=== PATIENT | female | born 1975 | race Two or more races ===

== ENCOUNTER → 2023-03-19 | Day surgery (SDC) | payer OTHER ==
[~2023-03-19] MED LIST: ACETAMINOPHEN 1000 MG/100 ML 100 ML IV ONE; FENTANYL CITRATE/PF 100MCG/2 ML INJ ONE; HYOSCYAMINE SULFATE 0.5 MG/ML INJ ONE; LACTATED RINGER'S 1,000 ML ONE; LIDOCAINE HCL 2% LOCAL INJ 5 ML SDV VIAL INJ ONE; METOCLOPRAMIDE HCL 10 MG/2ML VIAL ONE; MULTI-VITAMIN1 EACH PO; PROPOFOL IV EMULSION 10 MG/ML 20 ML VIAL ONE; TAMOXIFEN CITRA10 MG PO; VIT D3 PO
[2023-03-19 14:10] VITALS: TEMP 97.4
[2023-03-19 14:55] VITALS: BP 130/60; PULSE 70; RESP 14; O2SAT 97
== END | disposition home or self-care (01) ==
LOC: OR 10:52
PROVIDERS: ATTEND Internal Medicine Gastroenterology
DX: Z12.11 Encounter for screening for malignant neoplasm of colon (principal); K64.8 Other hemorrhoids; Z71.3 Dietary counseling and surveillance; Z68.29 Body mass index [BMI] 29.0-29.9, adult
CPT/HCPCS: 45378; 81025; J0131; J2765; J3010; J7121; J1980; J2001